=== PATIENT | female | born 1985 | race Caucasian/White ===

== ENCOUNTER 2017-12-30 10:54 | Day surgery (SDC) | payer BC ==
[~2017-12-30] VITALS: Ht 157.5 cm; Wt 86.2 kg
[2017-12-30] VITALS (9 sets, daily range): BP systolic 97–118; BP diastolic 54–68; PULSE 68–99; TEMP 98–98.2
[2017-12-30] MEDS ORDERED: VALTREX1 GM PO (11:35)
[2017-12-30] MEDS ORDERED: FLONASE NASAL S16 GM NS (11:36)
[2017-12-30] MEDS ORDERED: PLAQUENIL 200M200 MG PO (11:36)
[2017-12-30] MEDS ORDERED: TYLENOL 325MG325 MG PO (11:37)
[2017-12-30] MEDS ORDERED: MOTRIN 800800 MG/TAB PO (15:58)
[2017-12-30] MEDS ORDERED: PERCOCET 325 MG1 TA2 PO (15:58)
[2017-12-31 00:10] VITALS: BP 102/56; PULSE 76; TEMP 97.6
== END 2017-12-31 00:55 | disposition home or self-care (01) ==
LOC: SDCO 10:54 → OB 16:25 → SDCO 12-31 00:55
DX: D25.2 Subserosal leiomyoma of uterus (principal); N80.0 Endometriosis of uterus; N80.1 Endometriosis of ovary; N92.1 Excessive and frequent menstruation with irregular cycle; N94.6 Dysmenorrhea, unspecified; N73.6 Female pelvic peritoneal adhesions (postinfective); M19.90 Unspecified osteoarthritis, unspecified site; D50.9 Iron deficiency anemia, unspecified; Z79.51 Long term (current) use of inhaled steroids; Z83.3 Family history of diabetes mellitus
CPT/HCPCS: OP; A4314; J0690; J1100; J1885; J2270; J2405; J2704; J2710; J3010; J7120